=== PATIENT | female | born 1985 | race African-American/Black ===

== ENCOUNTER 2016-11-03 17:07 | Emergency (ER) | payer OTHER ==
[~2016-11-03] VITALS: Ht 160 cm; Wt 59.0 kg
[2016-11-03 17:38] VITALS: BP 134/87
[2016-11-03] MEDS ORDERED: IBUPROFEN600 MG ORAL (17:41)
[2016-11-03] MEDS ORDERED: ZITHROMAX250 MG ORAL (17:41)
[2016-11-03] MEDS ORDERED: PREDNISONE20 MG ORAL (17:41)
[2016-11-03 17:49] VITALS: BP 134/87
--- NOTE | 2016-11-03 23:41 | Emergency Room Report ---
History of Present Illness General Chief Complaint: Sore Throat Source: Patient Present Illness HPI The patient is a 31-year-old female presenting for sore throat, cough, headache for the past 3 days. Pain is described as an 8/10 dull ache to the back of the throat and is worse with swallowing. Pain does not radiate. She has not tried any medications yet. She denies any sick contacts recent travel. She does admit to subjective fever but denies other symptoms including nausea, vomiting, chills, rash, neck pain or stiffness Allergies: Coded Allergies: PENICILLINS (Verified Allergy, Unknown, 11/03/16) Patient History Past Medical History: see triage record Pertinent Family History: none Last Menstrual Period: 10/28/16 Now: No Reviewed Nursing Documentation: PMH: Agreed, PSxH: Agreed Nursing Documentation-PM Past Medical History: No Stated History Review of Systems All Other Systems: negative except mentioned in HPI Physical Exam Vital Signs Date Time Temp Pulse Resp B/P Pulse Ox O2 Delivery O2 Flow Rate FiO2 11/03/16 17:22 98.4 108 14 134/87 100 Room Air Sp02 EP Interpretation: reviewed, normal General Appearance: no apparent distress, alert, GCS 15, non-toxic Head: normocephalic, atraumatic Eyes: bilateral eye PERRL, bilateral eye normal inspection ENT: hearing grossly normal, no angioedema, normal voice, uvula midline, tonsillar swelling, pharyngeal erythema Neck: full range of motion, supple/symm/no masses Respiratory: chest non-tender, lungs clear, normal breath sounds, speaking full sentences Gastrointestinal: normal bowel sounds, non tender, soft, non-distended, no guarding, no rebound Musculoskeletal: back normal, gait/station normal, normal range of motion, non- tender, calf tenderness Neurologic: alert, oriented x3, responsive, motor strength/tone normal, sensory intact, speech normal Psychiatric: judgement/insight normal, memory normal, mood/affect normal, no suicidal/homicidal ideation Skin: normal color, no rash, warm/dry, well hydrated Lymphatic: adenopathy Medical Decision Making PA Attestation Dr. Miguel is my supervising physician. Patient management was discussed with my supervising physician Diagnostic Impression: Primary Impression: Pharyngitis, acute Qualified Codes: J02.9 - Acute pharyngitis, unspecified ER Course The patient is a 31-year-old female presenting for sore throat, cough, headache Differential diagnosis include but not limited to pharyngitis, sinusitis, AOM, bronchitis, PNA Physical exam: Vitals within normal limits. Afebrile. No apparent distress HEENT exam: There is bilateral tonsillar edema, erythema. Uvula midline. Moist mucous membranes. There is bilateral cervical lymphadenopathy. Lungs are clear to auscultation bilaterally Skin is warm and dry. No rash The patient will be discharged home with a prescription for azithromycin, prednisone, and is given ER precautions. Patient will followup with primary care Last Vital Signs Date Time Temp Pulse Resp B/P Pulse Ox O2 Delivery O2 Flow Rate FiO2 11/03/16 17:49 98.4 70 14 134/87 100 Room Air Status: improved Disposition: HOME, SELF-CARE Condition: Improved Scripts Prednisone* (PREDNISONE*) 20 Mg Tablet 40 MG ORAL DAILY, #8 TAB Prov: JESSA BELLAMYAMarlyn 11/03/16 Azithromycin* (ZITHROMAX*) 250 Mg Tablet 250 MG ORAL DAILY, #6 TAB 0 Refills Take two tables once daily for 1 day, then one tablet once daily for 4 days. Prov: JESSA BELLAMY.A. 11/03/16 Ibuprofen* (MOTRIN*) 600 Mg Tablet 600 MG ORAL Q8H Y for For Pain, #30 TAB 0 Refills Prov: JESSA BELLAMY.A. 11/03/16 Referrals: [facility] (PCP) Patient Instructions: Sore Throat Additional Instructions: I discussed my findings with the patient. All questions and concerns have been answered. Treatment and medication compliance have been addressed. I advised the patient that they need to follow up with PMD in 3-5 days. Return to ED if pain remains or worsens, cough worsens or remains, you notice blood in your sputum, you notice wheezing, you experience a fever, or if needed for any reason. Patient verbalized understanding of discharge instructions. JESSA BELLAMY Nov 03, 2016 23:41
== END 2016-11-03 18:00 | disposition home or self-care (01) ==
LOC: EMR 17:45
DX: J02.9 Acute pharyngitis, unspecified (principal); R51 Headache; Z88.0 Allergy status to penicillin
CPT/HCPCS: 99284

== ENCOUNTER 2019-01-23 12:52 | Emergency (ER) | payer OTHER ==
[~2019-01-23] VITALS: Ht 160 cm; Wt 59.0 kg
[~2019-01-23 12:52] MED LIST: IBUPROFEN600 MG ORAL; PREDNISONE20 MG ORAL; ZITHROMAX250 MG ORAL
[2019-01-23 12:58] VITALS: BP 127/75
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
[2019-01-23] MEDS ORDERED: Isovue-300 100ml vial INJ PRN (13:45)
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
[2019-01-23] MEDS ORDERED: Ketorolac 30mg Inj IV ONE (14:00)
--- NOTE | 2019-01-23 14:16 | NUR ---
ED Nurse Note: blood / ua sent to lab
[2019-01-23 14:42] LABS: ANION GAP 13 mmol/L (5-15); BLOOD UREA NITROGEN 13 mg/dL (7-18); CALCIUM 9.5 MG/DL (8.5-10.1); CARBON DIOXIDE 21 MMOL/L (21-32); CHLORIDE 107 MMOL/L (98-107); CREATININE 0.6 MG/DL (0.55-1.30); POTASSIUM 5.2 MMOL/L (3.5-5.1); SODIUM 140 MMOL/L (136-145)
--- NOTE | 2019-01-23 14:56 | NUR ---
ED Nurse Note: patient went to CT
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
[2019-01-23] MEDS ORDERED: ROBAXIN-750750 MG PO (16:37)
[2019-01-23] MEDS ORDERED: IBUPROFEN600 MG ORAL (16:37)
[2019-01-23 16:50] VITALS: BP 127/75
--- NOTE | 2019-01-23 16:50 | NUR ---
ER DISCHARGE NOTE: Patient is cleared to be discharged per [facility], pt is aox4, on room air, with stable vital signs. pt was given dc and prescription instructions, pt was able to verbalize understanding, pt id band and iv site removed without complications. pt is able to ambulate with steady gait. pt took all belongings.
--- NOTE | 2019-01-24 11:32 | Cardiology Report ---
APPROVED REPORT EKG Measurement Heart [id number] Normal sinus rhythm Normal ECG
== END 2019-01-23 16:50 | disposition home or self-care (01) ==
LOC: EMR 14:06
DX: S46.912A Strain of unspecified muscle, fascia and tendon at shoulder and upper arm level, left arm, initial encounter (principal); M62.838 Other muscle spasm; S50.811A Abrasion of right forearm, initial encounter; R07.9 Chest pain, unspecified; R10.30 Lower abdominal pain, unspecified; Z88.0 Allergy status to penicillin; V43.92XA Unspecified car occupant injured in collision with other type car in traffic accident, initial encounter; Y92.410 Unspecified street and highway as the place of occurrence of the external cause
CPT/HCPCS: 36415; 71260; 74177; 80048; 81025; 93005; 96374; 99284; J1885; Q9967